=== PATIENT | male | born 2005 | race Caucasian/White ===

== ENCOUNTER 2024-02-19 17:52 | Emergency (ER) | payer BC ==
[2024-02-19 18:09] LABS: HEMATOCRIT 39.7 % (42.0-52.0); HEMOGLOBIN 13.8 g/dL (14.0-18.0); MEAN CORPUSCULAR HEMOGLOBIN 30.2 pg (28.0-32.0); MEAN CORPUSCULAR HGB CONC 34.8 g/dL (32.0-36.0); MEAN CORPUSCULAR VOLUME 86.9 fL (83.0-99.0); MEAN PLATELET VOLUME 9.8 fL (9.4-12.4); PLATELET COUNT,PLT 515 K/uL (150-400); RED BLOOD CELL COUNT 4.57 M/uL (4.52-5.90); WHITE BLOOD CELL COUNT,WBC 13.24 K/uL (4.5-13.5)
[2024-02-19] MEDS: Morphine 4 MG/ML Syringe IVPUSH ONE (18:21)
[2024-02-19 18:28] LABS: BLOOD UREA NITROGEN,BUN 9 mg/dL (7.0-18.0); CALCIUM 8.4 mg/dL (8.5-10.1); CARBON DIOXIDE,CO2 26.3 mmol/L (21.0-32.0); CHLORIDE,CL 103 mmol/L (98-107); ETHANOL BLOOD MEDICAL 244 mg/dL; GLUCOSE RANDOM 108 mg/dL (74-106); POTASSIUM,K 3.7 mmol/L (3.5-5.1); SODIUM,NA 143 mmol/L (136-148)
[2024-02-19 18:31] LABS: ESTIMATED GFR 111 mL/min (>60)
[2024-02-19 18:38] LABS: ATYPICAL LYMPHOCYTES OCCASIONAL; BAND ABSOLUTE MAN 0.13; BAND PERCENT MAN 1 %; LYMPHOCYTES ABSOLUTE MAN 6.22 K/uL (2.00-8.80); LYMPHOCYTES PERCENT MAN 47 % (50-65); MONOCYTES PERCENT MAN 3 % (2-10); SEG NEUTROPHILS ABSOLUTE MAN 6.49 K/uL (1.50-8.50); SEG NEUTROPHILS PERCENT MAN 49 % (35-45)
[2024-02-19 20:20] LABS: AMPHETAMINES SCREEN, URINE NEGATIVE (CUTOFF=500); BARBITURATE SCREEN,URINE NEGATIVE (CUTOFF=200); BENZODIAZEPINES SCREEN,URINE NEGATIVE (CUTOFF=150); BUPRENORPHINE SCREEN,URINE NEGATIVE (CUTOFF=10); METHADONE SCREEN, URINE NEGATIVE (CUTOFF=200); METHAMPHETAMINES SCREEN, URINE NEGATIVE (CUTOFF=500); OXYCODONE SCREEN,URINE NEGATIVE (CUT0FF=100); PCP SCREEN,URINE NEGATIVE (CUTOFF=25); THC SCREEN,URINE 20 NG/ML PRESUMPTIVE POSITIVE (CUTOFF=50)
[2024-02-19] MEDS: traMADol 50 MG Tab PO ONE (20:32)
[2024-02-19] MEDS: Ketorolac 30 MG/ML SDV IVPUSH ONE (20:32)
[2024-02-19] MEDS: Acetaminophen 325 MG Tab PO ONE (20:32)
== END 2024-02-19 21:10 | disposition home or self-care (01) ==
LOC: MW.ED 17:52
DX: S06.0X1A Concussion with loss of consciousness of 30 minutes or less, initial encounter (principal); S93.401A Sprain of unspecified ligament of right ankle, initial encounter; S83.91XA Sprain of unspecified site of right knee, initial encounter; V86.65XA Passenger of 3- or 4- wheeled all-terrain vehicle (ATV) injured in nontraffic accident, initial encounter; Z75.8 Other problems related to medical facilities and other health care
CPT/HCPCS: 36415; 70450; 72125; 73501; 73552; 73562; 73590; 73610; 73630; 80048; 80305; 80307; 85025; 96374; 96375; 99284; A9270; J1885; J2270

== ENCOUNTER 2024-04-23 17:06 | Emergency (ER) | payer OTHER, BC ==
[2024-04-23] MEDS: Bacitracin Oint 1 GM U/D Packet TOP ONE (18:12)
== END 2024-04-23 18:20 ==
LOC: MW.ED 17:06
DX: S30.810A Abrasion of lower back and pelvis, initial encounter (principal); S60.511A Abrasion of right hand, initial encounter; Z75.8 Other problems related to medical facilities and other health care; V89.2XXA Person injured in unspecified motor-vehicle accident, traffic, initial encounter
CPT/HCPCS: 99283